=== PATIENT | female | born 1995 | race Hispanic/Latino ===

== ENCOUNTER 2020-10-27 15:06 | Emergency (ER) | payer SELFPAY ==
[2020-10-27] MEDS ORDERED: LIDOCAINE 1% MPF 30 ML VIAL ONE (18:53)
--- NOTE | 2020-10-27 19:48 | ER ---
Nurse's Notes [facility] Name: Socorro Lozano Age: 25 yrs Sex: Female : 1995 Arrival Date: 10/27/2020 Time: 15:22 Bed 23 Private MD: Diagnosis: Forearm Abscess Presentation: 10/27 15:35 Chief complaint: Patient states: abscess to R elbow that began 4 days ago. Coronavirus ss screen: Client denies travel out of the [place] in the last 14 days. Ebola Screen: Patient denies exposure to infectious person. Patient denies travel to an Ebola-affected area in the 21 days before illness onset. Initial Sepsis Screen: Does the patient meet any 2 criteria? No. Patient's initial sepsis screen is negative. Does the patient have a suspected source of infection? No. Patient's initial sepsis screen is negative. Risk Assessment: Do you want to hurt yourself or someone else? Patient reports no desire to harm self or others. Onset of symptoms was October 23, 2020. 15:35 Method Of Arrival: Ambulatory ss 15:35 Acuity: JESSICA 4 ss Historical: - Allergies: 15:37 Vicodin; ss - Home Meds: 15:37 None [Active]; ss - PMHx: 15:37 None; ss - PSHx: 15:37 Cholecystectomy; ; ss - Immunization history:: Adult Immunizations up to date. - Social history:: Smoking status: Patient denies any tobacco usage or history of. Screenin:22 Abuse screen: Denies threats or abuse. Nutritional screening: No deficits noted. vg1 Tuberculosis screening: No symptoms or risk factors identified. Fall Risk None identified. Assessment: 18:18 General: Appears in no apparent distress. comfortable, Behavior is calm, cooperative. vg1 Pain: Complains of pain in Right elbow Pain currently is 5 out of 10 on a pain scale. at worst was 10 out of 10 on a pain scale. Pain began about 4 days ago. Patient stated she's not too sure if maybe an insect bit her. Aggravated by repositioning. Neuro: Level of Consciousness is awake, alert, obeys commands, Oriented to person, place, time, situation. Cardiovascular: Patient's skin is warm and dry. Respiratory: Airway is patent Respiratory effort is even, unlabored. GI: No signs and/or symptoms were reported involving the gastrointestinal system. : No signs and/or symptoms were reported regarding the genitourinary system. EENT: No signs and/or symptoms were reported regarding the EENT system. Derm: Right elbow is red and warm to touch with swelling. Musculoskeletal: Range of motion: limited in right elbow Reports Pain becomes worse when bending the Right elbow. 19:22 Reassessment: Patient appears in no apparent distress at this time. No changes from vg1 previously documented assessment. Patient and/or family updated on plan of care and expected duration. Pain level reassessed. Patient is alert, oriented x 3, equal unlabored respirations, skin warm/dry/pink. Vital Signs: 15:35 Pulse 90; Resp 15; Temp 98.5(TE); Pulse Ox 99% on R/A; Weight 108.86 kg; Height 5 ft. 3 ss in. (160.02 cm); Pain 5/10; 15:37 BP 117 / 68; ss 18:22 BP 116 / 66; Pulse 80; Resp 14; Pulse Ox 100% on R/A; vg1 19:22 BP 112 / 60; Pulse 74; Resp 14; Pulse Ox 100% on R/A; vg1 15:35 Body Mass Index 42.51 (108.86 kg, 160.02 cm) ss ED Course: 15:22 Patient arrived in ED. ag5 15:36 Triage completed. ss 15:37 Arm band placed on left wrist. ss 16:33 Carloz Leo PA is PHCP. [facility] 16:33 Jhonatan Garces MD is Attending Physician. [facility] 18:11 Ryann Reilly, RN is Primary Nurse. vg1 18:22 Patient has correct armband on for positive identification. Bed in low position. Call [facility] light in reach. Side rails up X 1. 19:45 Assist provider with I \T\ D: of an abscess on right elbow. Patient did not have IV em access during this emergency room visit. 19:47 Stefano Soriano MD is Referral Physician. [facility] Administered Medications: 19:30 Drug: Lidocaine (1 %) 20 ml Volume: 20 ml; Route: Infiltration; vg1 19:43 Follow up: Response: No adverse reaction vg1 19:43 Drug: Bactrim (160 mg-800 mg (DS) 1 tablet Route: PO; vg1 19:43 Drug: Doxycycline 100 mg Route: PO; vg1 Outcome: 19:47 Discharge ordered by . roxanna 19:55 Discharged to home ambulatory. em 19:55 Condition: good 19:55 Discharge instructions given to patient, Instructed on discharge instructions, follow up and referral plans. medication usage, wound care, Demonstrated understanding of instructions, follow-up care, medications, wound care, Prescriptions given X 3. 19:59 Patient left the ED. mw2 Signatures: Carloz Leo PA PA jmm Munoz, Edgar, RN RN Jenna Jamison, RN RN Kathrin Gabriel mw2 Tristan Zafar Ryann Villalpando, RN RN vg1
--- NOTE | 2020-10-27 19:48 | EDPHYS ---
Physician Documentation [facility] Name: Socorro Lozano Age: 25 yrs Sex: Female : 1995 Arrival Date: 10/27/2020 Time: 15:22 Bed 23 Private MD: WINNIE Physician Jhonatan Garces HPI: 10/27 18:52 This 25 yrs old Female presents to ER via Ambulatory with complaints of Boil. jmm 18:52 The patient presents with an abscess of the right elbow. Onset: The symptoms/episode jmm began/occurred gradually, 4 day(s) ago. Possible cause(s): unknown. Associated signs and symptoms: Pertinent positives: drainage, erythema, swelling, Pertinent negatives: fever. Modifying factors: the symptoms are alleviated by nothing, the symptoms are aggravated by movement, pressure. The patient has not experienced similar symptoms in the past. Historical: - Allergies: 15:37 Vicodin; ss - Home Meds: 15:37 None [Active]; ss - PMHx: 15:37 None; ss - PSHx: 15:37 Cholecystectomy; ; ss - Immunization history:: Adult Immunizations up to date. - Social history:: Smoking status: Patient denies any tobacco usage or history of. ROS: 18:52 Constitutional: Negative for fever, chills, and weight loss, Cardiovascular: Negative jmm for chest pain, palpitations, and edema, Respiratory: Negative for shortness of breath, cough, wheezing, and pleuritic chest pain. 18:52 Skin: Positive for erythema, swelling. 18:52 All other systems are negative. Exam: 18:52 Constitutional: This is a well developed, well nourished patient who is awake, alert, jmm and in no acute distress. Head/Face: atraumatic. Eyes: EOMI, no conjunctival erythema appreciated ENT: Moist Mucus Membranes Neck: Trachea midline, Supple Chest/axilla: Normal chest wall appearance and motion. Cardiovascular: Regular rate and rhythm. No edema appreciated Respiratory: Normal respirations, no respiratory distress appreciated Abdomen/GI: Non distended, soft Back: Normal ROM 18:52 Skin: erythema and induration noted to the right elbow, purulent drainage noted. 18:52 Neuro: Orientation: is normal, Mentation: is normal, Memory: is normal. 18:52 Psych: Behavior/mood is pleasant, cooperative. Vital Signs: 15:35 Pulse 90; Resp 15; Temp 98.5(TE); Pulse Ox 99% on R/A; Weight 108.86 kg; Height 5 ft. 3 ss in. (160.02 cm); Pain 5/10; 15:37 BP 117 / 68; ss 18:22 BP 116 / 66; Pulse 80; Resp 14; Pulse Ox 100% on R/A; vg1 19:22 BP 112 / 60; Pulse 74; Resp 14; Pulse Ox 100% on R/A; vg1 15:35 Body Mass Index 42.51 (108.86 kg, 160.02 cm) ss Procedures: 19:36 I \T\ D: Incision and drainage was performed for an abscess of the left right elbow jmm Prepped with Betadine, Anesthetized with 5 ml's 1% Lidocaine. Incised with #11 blade. Drained moderate amount purulent fluid. Packed with iodoform gauze, Dressing: sterile 4x4 gauze. MDM: 18:22 Patient medically screened. [facility] 19:36 Data reviewed: vital signs, nurses notes. Counseling: I had a detailed discussion with [facility] the patient and/or guardian regarding: the historical points, exam findings, and any diagnostic results supporting the discharge/admit diagnosis, the need for outpatient follow up, to return to the emergency department if symptoms worsen or persist or if there are any questions or concerns that arise at home. ED course: Patient is alert and non toxic in appearance in the ED. No signs of sepsis. Patient given strict return precautions. patient understood and agrees with the plan of care. . Administered Medications: 19:30 Drug: Lidocaine (1 %) 20 ml Volume: 20 ml; Route: Infiltration; vg1 19:43 Follow up: Response: No adverse reaction vg1 19:43 Drug: Bactrim (160 mg-800 mg (DS) 1 tablet Route: PO; vg1 19:43 Drug: Doxycycline 100 mg Route: PO; vg1 Disposition: 10/28 11:10 Co-signature as Attending Physician, Jhonatan Garces MD I agree with the assessment and [facility] plan of care. Disposition: 10/27/20 19:47 Discharged to Home. Impression: Forearm Abscess. - Condition is Stable. - Discharge Instructions: Skin Abscess, Incision and Drainage, Care After. - Prescriptions for Doxycycline Hyclate 100 mg Oral Tablet - take 1 tablet by ORAL route every 12 hours; 20 tablet. Bactrim DS 800- 160 mg Oral Tablet - take 1 tablet by ORAL route every 12 hours for 10 days; 20 tablet. orphenadrine citrate 100 mg Oral Tablet Sustained Release - take 1 tablet by ORAL route 2 times per day As needed; 20 tablet. - Medication Reconciliation Form, Thank You Letter, Antibiotic Education, Prescription Opioid Use form. - Follow up: Stefano Soriano MD; When: 2 - 3 days; Reason: Recheck today's complaints, Continuance of care, Re-evaluation by your physician. Signatures: Jhonatan Garces MD MD cha Mickail, Joel, PA PA jmm Smirch, Shelby, RN RN Kathrin Gabriel mw2 Ryann Reilly, RN RN vg1 Corrections: (The following items were deleted from the chart) 10/27 19:59 19:47 10/27/2020 19:47 Discharged to Home. Impression: Forearm Abscess. Condition is mw2 Stable. Forms are Medication Reconciliation Form, Thank You Letter, Antibiotic Education, Prescription Opioid Use. Follow up: Stefano Soriano; When: 2 - 3 days; Reason: Recheck today's complaints, Continuance of care, Re-evaluation by your physician. roxanna
[2020-10-27] MEDS ORDERED: SMZ./TMP. 800/160 MG TABLET ONE (19:56)
[2020-10-27] MEDS ORDERED: DOXYCYCLINE 100 MG CAP PO ONE (19:56)
[2020-10-27 20:06] VITALS: TEMP 98.5
[2020-10-27 20:08] VITALS: O2SAT 100
[2020-10-27 20:09] VITALS: BP 112/60
== END 2020-10-27 19:59 | disposition home or self-care (01) ==
LOC: ER 15:06
PROC: 0J9G0ZZ Drainage of Right Lower Arm Subcutaneous Tissue and Fascia, Open Approach (ICD-10-PCS; principal; 2020-10-27)
DX: L02.413 Cutaneous abscess of right upper limb (principal); Z88.5 Allergy status to narcotic agent
CPT/HCPCS: 99283